=== PATIENT | male | born 1975 | race Caucasian/White ===

== ENCOUNTER 2024-03-21 19:53 | Emergency (ER) | payer OTHER, BC, SELFPAY ==
--- NOTE | ~2024-03-21 | CT_ITS ---
EXAMINATION: CT HEAD WITHOUT CONTRAST CT CERVICAL SPINE WITHOUT CONTRAST CLINICAL INFORMATION: Work injury. Headache. Head stuck between metal. COMPARISON: None available. TECHNIQUE: Contiguous axial imaging was performed from the skull base to vertex without intravenous administration of contrast. Contiguous axial imaging was performed from the upper chest through the skull base without intravenous administration of contrast. Coronal and sagittal reformats were obtained at the acquisition workstation. This CT examination was performed using dose optimization techniques as appropriate, variously including the following: *Automated exposure control. *Adjustment of mA and/or kV according to patient size (this includes techniques or standardized protocols for targeted exams where dose is matched to indication/reason for exam; i.e. extremities or head). *Use of iterative reconstruction technique. DLP: 1099 mGy-cm FINDINGS: Head: There is no evidence of acute intracranial hemorrhage or edematous territorial infarction. Douglas-white matter differentiation is preserved. There is no abnormal attenuation within the brain parenchyma. The ventricles are normal in morphology and size. No evidence for obstructive hydrocephalus. No abnormal mass effect or midline shift. No extra-axial fluid collections. No acute soft tissue or osseous abnormalities. Mild mucosal thickening of the paranasal sinuses. Mild leftward nasal septal deviation. The mastoid air cells and middle ear cavities are clear. Cervical Spine: The atlantooccipital and atlantoaxial articulations remain well aligned. Mild degenerative retrolisthesis of C6 on C7. Otherwise, there is anatomic alignment of the vertebral bodies and posterior elements. No evidence of acute fracture or subluxation. The vertebral body heights are maintained. Advanced degenerative disc disease at C6-7. Mild degenerative disc disease from C3-C6. Facet and uncovertebral joint arthropathy leads to osseous encroachment on the neural foramina from C5-C7. There is no prevertebral soft tissue swelling. The thyroid gland and remaining cervical soft tissues are within normal limits. The lung apices demonstrate no abnormalities. CT/CT cervical spine wo IV con IMPRESSION: 1. No evidence of acute intracranial hemorrhage or edematous territorial infarction. 2. No evidence of acute fracture or traumatic subluxation of the cervical spine. 3. Mild to moderate multilevel degenerative spondyloarthropathy of the cervical spine. Electronically signed by: Jose Angel Gill DO 03/21/2024 10:15 PM [facility] [place] [place]
--- NOTE | ~2024-03-21 | CT_ITS ---
EXAMINATION: CT HEAD WITHOUT CONTRAST CT CERVICAL SPINE WITHOUT CONTRAST CLINICAL INFORMATION: Work injury. Headache. Head stuck between metal. COMPARISON: None available. TECHNIQUE: Contiguous axial imaging was performed from the skull base to vertex without intravenous administration of contrast. Contiguous axial imaging was performed from the upper chest through the skull base without intravenous administration of contrast. Coronal and sagittal reformats were obtained at the acquisition workstation. This CT examination was performed using dose optimization techniques as appropriate, variously including the following: *Automated exposure control. *Adjustment of mA and/or kV according to patient size (this includes techniques or standardized protocols for targeted exams where dose is matched to indication/reason for exam; i.e. extremities or head). *Use of iterative reconstruction technique. DLP: 1099 mGy-cm FINDINGS: Head: There is no evidence of acute intracranial hemorrhage or edematous territorial infarction. Douglas-white matter differentiation is preserved. There is no abnormal attenuation within the brain parenchyma. The ventricles are normal in morphology and size. No evidence for obstructive hydrocephalus. No abnormal mass effect or midline shift. No extra-axial fluid collections. No acute soft tissue or osseous abnormalities. Mild mucosal thickening of the paranasal sinuses. Mild leftward nasal septal deviation. The mastoid air cells and middle ear cavities are clear. Cervical Spine: The atlantooccipital and atlantoaxial articulations remain well aligned. Mild degenerative retrolisthesis of C6 on C7. Otherwise, there is anatomic alignment of the vertebral bodies and posterior elements. No evidence of acute fracture or subluxation. The vertebral body heights are maintained. Advanced degenerative disc disease at C6-7. Mild degenerative disc disease from C3-C6. Facet and uncovertebral joint arthropathy leads to osseous encroachment on the neural foramina from C5-C7. There is no prevertebral soft tissue swelling. The thyroid gland and remaining cervical soft tissues are within normal limits. The lung apices demonstrate no abnormalities. CT/CT head/brain wo IV con IMPRESSION: 1. No evidence of acute intracranial hemorrhage or edematous territorial infarction. 2. No evidence of acute fracture or traumatic subluxation of the cervical spine. 3. Mild to moderate multilevel degenerative spondyloarthropathy of the cervical spine. Electronically signed by: Jose Angel Gill DO 03/21/2024 10:15 PM [facility]
--- NOTE | 2024-03-21 19:57 | ED.GENADULT ---
HPI - General Adult General Chief complaint: Head Injury Stated complaint: head inj - work related Time Seen by Provider: 03/21/24 20:51 Source: patient Mode of arrival: ambulatory Limitations: no limitations History of Present Illness ED Provider: Dr. William Lubin HPI narrative: 49-year-old male with no significant past medical history on no medications who presenting to the ED with complaint of crush injury to his head that occurred at work work yesterday at approximately 15:00 hours States he was on a boom lift and the lift kept going up after he let go of the button. He states that his head got pinned between a Beam and the the boom lift. He has had was turned side weighs in his head was being squeezed. His safety helmet popped off and he was able to pull his head out. He states that his head was squeezed for seconds. Since the incident yesterday he has been having pain in his temporal areas and bilateral shoulder pain and neck pain. He states he has a constant, throbbing headache which is moderate to severe in intensity. States it was an occasional sharp pain. He has had associated nausea and dizziness with no vomiting. He states he is having pain in both shoulders left greater than right and he is having difficulty moving his shoulders. He told me that he went to an urgent care clinic and had a plain x-ray which suggests that he may have had a right-sided skull fracture and he was referred to the emergency department for evaluation. 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 Social History Social History Smoked in Last 30 Days: No Use of substances other than those prescribed or required for medical reasons: No Advance Directives: No Advance Directives Information Provided: No Physical Exam ED Vital Signs: Vital Signs - 24 hr 03/21/24 19:58 03/21/24 21:16 03/21/24 23:05 Temperature 98.8 F 98.1 F 98.1 F Pulse Rate 82 71 57 Respiratory Rate 16 16 18 Blood Pressure 154/87 H 128/74 115/70 Pulse Oximetry 99 99 99 Oxygen Delivery Method Room Air Room Air Room Air BMI result Body Mass Index 22.7 Vital signs revealed an elevated blood pressure of 154/87 Exam: General: Awake, alert in no distress Head: Normocephalic, patient has tenderness palpation of his right and left temporal areas with no obvious hematoma or ecchymosis in these areas. EENT: PERRL, Lids normal, sclera normal, conjunctiva normal, nose normal , ears normal, throat without erythema or exudates Neck: Supple, no adenopathy Lung: breath sounds symmetric, no wheezing, rales or rhonchi Chest: symmetric movement, nontender Heart: regular rate and rhythm, normal S1, S2 no murmurs or rubs Abdomen: soft, non-tender, nondistended, normal bowel sounds Back: no vertebral tenderness, no CVAT Extremities: Patient was tenderness palpation over his left deltoid region, has full passive range of motion of his left shoulder but with active internal rotation external rotation has discomfort. Neuro: Awake, alert, oriented, normal speech, cranial nerves intact, moves all extremities symmetrically Psych: Pleasant, cooperative Course Course Course Narrative: This is a rapid medical exam performed by Leif Carver NP: Additional HPI, ROS, PE not included below will be deferred to primary provider. Patient is a 49-year-old male presenting to the ED with complaint of head injury at work yesterday. States he was on a boom lift and the lift kept going up after he let go of the button. Helmet popped off and his head was pressed between the lift and a metal beam on the temples. Complains of headache. Went to urgent care, referred for CT. Plan: CT head and c-spine Medications Administered Discontinued Medications Generic Name Dose Route Start Last Admin Trade Name Freq PRN Reason Stop Dose Admin Ibuprofen 400 mg 03/21/24 22:39 03/21/24 22:56 Ibuprofen 400 Mg Tablet PO 03/21/24 22:40 400 mg ONCE STA Administration Medical Decision Making Medical Decision Making [facility] Narrative: 49-year-old male with no significant past medical history presents emergency department for evaluation of work-related injury where his head was crushed for seconds between a Beam and a boom lift. Injury occurred yesterday around 15:00 hours and since that time he has had a constant headache with associated nausea and dizziness. He was also had bilateral shoulder pain left greater than right. Vital signs revealed an elevated blood pressure. Physical examination did reveal tenderness palpation of both temporal regions of his scalp as well as pain with palpation of his left shoulder deltoid muscle. Patient does have pain with active range of motion of his left shoulder with increased pain with internal and external rotation. Differential diagnosis: ?Includes but is not limited to skull fracture, intracranial bleed, concussion/TBI, neck fracture, shoulder strain Following evaluation was ordered: CT scan of the head and neck without IV contrast Course: 22:32 CT scan of the patient's head and cervical spine was unremarkable. At this time I believe that the patient's headache is secondary to concussion caused by his head injury and I did discuss this with the patient. The patient has bilateral shoulder pain is most likely caused by musculoskeletal injury from the position that you was in on the boom lift when his head was stuck between the boom lift and the beam. Patient was advised to take Tylenol and ibuprofen for his pain. 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 He will be referred to our occupational health clinic for re-evaluation. Admission/Observation Consideration of admission/observation: Escalation of care including admission/observation considered (Want to fevers the help sitting in the) Radiology Impression Discussion of test interpretation with radiology: I have reviewed the radiologist's reading. Radiologist Impression: CT cervical spine wo IV con IMPRESSION: 1. No evidence of acute intracranial hemorrhage or edematous territorial infarction. 2. No evidence of acute fracture or traumatic subluxation of the cervical spine. 3. Mild to moderate multilevel degenerative spondyloarthropathy of the cervical spine. Electronically signed by: Jose Angel Gill DO 03/21/2024 10:15 PM [facility] Dictated By: Hesham Gill DO Discharge Plan Discharge Clinical Impression: Closed head injury, Concussion without loss of consciousness, Left shoulder pain, Right shoulder pain, Work related injury Patient Disposition: Home, Self-Care Instructions: Concussion (ED), Shoulder Pain (ED) Additional Instructions: The CT scan of your head and neck did not reveal any broken bones or bleeding in the brain which is reassuring. Your headache, nausea and dizziness is consistent with a concussion from your head injury. I believe the pain in your shoulders due to musculoskeletal injury from the position that your in when your head get trapped. Take ibuprofen 200 mg pills, 2 pills every 6 hours as needed for pain or fever. Take Tylenol (acetaminophen) 500 mg pills, 2 pills every 6 hours as needed for pain or fever. You will not be able to return to work until your cleared by an occupational health clinic. You can follow-up with our occupational health clinic or clinic that your employer use for Occupational injuries.. Follow-up with your doctor in 2 days. Please return to the emergency department if your symptoms get worse or if you develop any symptoms that are concerning to you. Referrals: [facility] [Provider Group] - 5 days (Head injury and bilateral shoulder injury at work) Stand Alone Forms: Work/School Release Interventions: ED Discharge Assessment Last Done: 03/21/24 23:05 Discharge Date/Time: 03/21/24 23:09 Print Language: Spanish
[2024-03-21 19:58] VITALS: BP 154/87; PULSE 82; RESP 16; TEMP 37.1; O2SAT 99; BMI 22.7
[2024-03-21 21:16] VITALS: BP 128/74; PULSE 71; RESP 16; TEMP 36.7; O2SAT 99
[2024-03-21] MEDS: Ibuprofen 400 MG TABLET PO (22:56)
[2024-03-21 23:05] VITALS: BP 115/70; PULSE 57; RESP 18; TEMP 36.7; O2SAT 99
== END 2024-03-21 23:09 | disposition home or self-care (01) ==
PROVIDERS: Emergency Provider Emergency Medicine Emergency Medical Services
DX: S09.8XXA Other specified injuries of head, initial encounter (principal); S06.0X0A Concussion without loss of consciousness, initial encounter; W23.1XXA Caught, crushed, jammed, or pinched between stationary objects, initial encounter; M25.512 Pain in left shoulder; M25.511 Pain in right shoulder; Y93.89 Activity, other specified; Y92.9 Unspecified place or not applicable; Y99.0 Civilian activity done for income or pay
CPT/HCPCS: 70450; 72125; 99284

== ENCOUNTER 2025-02-15 16:25 | Emergency (ER) | payer OTHER, BC, SELFPAY ==
[2025-02-15 16:39] VITALS: BP 119/62; PULSE 62; RESP 16; TEMP 36.8; O2SAT 98; BMI 19.6
--- NOTE | 2025-02-15 16:45 | ED_ITS ---
HPI - General Adult General Chief complaint: Headache Stated complaint: headache Time Seen by Provider: 02/15/25 17:39 History of Present Illness ED Provider: Regino Lagos MD HPI narrative: 49-year-old male comes in with headache, frequent recurrent dizziness, some memory or behavior issues self-reported. This is all going on for many months since what he describes as a significant head injury. It he has no vomiting or focal vision symptoms denies focal neurologic complaints. Has not sought care for this until today. The patient does report having [facility]. He feels that the bitemporal regions right greater than left are sore with some palpable tender nodularity there he feels he may have been told that he had a skull fracture at the right temporal region on an x-ray but this is not seen on the CT imaging done here at the time. He has some bilateral shoulder pain since the injury as well feels worse with palpation and rotating his shoulders around. Related Data Allergies Allergy/AdvReac Type Severity Reaction Status Date / Time adhesive Allergy Rash Verified 02/15/25 16:41 lactose Allergy Diarrhea Verified 02/15/25 16:41 milk Allergy Rash Verified 02/15/25 16:41 [facility] Social History Social History Advance Directives: No Advance Directives Information Provided: No Physical Exam ED Exam Exam: EXAM: Gen: Alert, awake, well appearing, well hydrated. Head: Atraumatic no step-off. Mild tenderness broadly across the temporal region without focal nodularity or palpable step-off or trauma. No hematoma. Eyes: Anicteric, Normal conjunctiva. EOMI ENT: Moist mucosa, no pallor. ? Neck: Supple. No midline tenderness Skin: ?No observable rash or bruising on exposed or examined skin Respiratory: Breathing comfortably, No distress.Clear to auscultation bilaterally, symmetric chest expansion, No wheeze, rales, ronchi. Cardiovascular: Regular rate and rhythm. No murmurs or rub. Well perfused periphery, warm extremities. No edema. ? Abdominal: No focal tenderness. Soft, no objective distension. No palpable masses or obvious organomegaly. ?No guarding, no rebound tenderness or other peritoneal findings. : No flank tenderness. Neuro: Alert. Gross movement of all extremities intact. ?5/5 strength upper and lower extremities bilaterally. Sensation intact to light touch. Normal steady gait. No ataxia. No nystagmus. Psych: Calm. Cooperative. MSK: No grossly visible deformity. Mild tenderness perhaps minimal limited range of motion of the right shoulder with rotation however ab duction and adduction normal bilaterally. Normal clavicles Vital signs: See flowsheet Vital Signs: Vital Signs - 24 hr 02/15/25 16:39 02/15/25 17:50 02/15/25 18:22 Temperature 98.2 F 98.3 F 97.8 F Pulse Rate 62 73 66 Respiratory Rate 16 16 15 Blood Pressure 119/62 121/66 117/79 Pulse Oximetry 98 98 96 Oxygen Delivery Method Room Air Room Air Room Air BMI result Body Mass Index 19.6 Course Course Course Narrative: RME: 49-year-old male presents to ED requesting MRI for headaches. Patient has history of right skull fracture had occurred last year had intermittent headaches ever since. Patient was seen couple days ago in the hospital as per patient had a CAT scan. Patient requesting MRI head and neck. Patient denies any stroke symptoms. NIH score is 0. Patient to be evaluated in the ED for Reevaluation(s) Reevaluation #1: 7:15 PM 02/15/2025 (Dr. Regino Lagos): Patient declined shoulder x- rays. I had a lengthy discussion with him I had added on inflammatory markers despite very low suggestion of giant cell arteritis. He did not want to wait for the results I would call him to discuss next steps if this were elevated Medical Decision Making Medical Decision Making MDM Narrative: Medical Decision Making: Chronic headaches for nearly 1 year after head injury. At that time CT head and C-spine which is available to view here was negative. The patient reports he had a skull fracture seen by x-rays in an outside clinic before that imaging was done. Patient has a bitemporal pain worse in the right he feels a lump there in the right side he also reporting behavior changes memory loss confusion on occasion chronic regular dizziness without vomiting. No subsequent head injuries. He feels he has been no unable to work for himself in his having a lot of trouble with this he is not address this to any other provider that he sees including a homeopathic and questionably a PCP over the past year. He has lots of self-reported medication allergies and is averse to trying oral or even topical [id number] pharmaceutical therapies for this. No vomiting no unsteady gait no falls. He also has a and some shoulder and lower neck pain since the time. Denies any focality. The patient does have some tenderness over bitemporal region. No jaw claudication is reported in the history nor any vision symptoms at all. Did consider but very low likelihood that this is a giant cell arteritis/temporal arteritis. I was able to visualize the reasonable stretch of his right temporal artery Later resulted on the I reviewed the inflammatory markers which are not elevated making giant cell arteritis very unlikely particularly given the chronicity of the symptoms Preliminary Favored Differential Diagnosis: Headache, migraine, postconcussive syndrome among additional considered etiologies Testing Interpreted Independently: ?See below for details Radiology or Lab testing Results Reviewed: ?See below for details Consults: ?See below for details Independent Historians/External Chart Reviews: ?See below for details Social Determinants of Health Impacting MDM/Planning: ?See below for details Lab Data 02/15/25 17:15 02/15/25 17:15 Labs: Lab Results 02/15/25 Range/Units 17:15 WBC 6.2 (4.8-10.8) X10*3/uL RBC 4.33 L (4.60-5.80) X10*6/uL Hgb 12.7 L (14.0-18.0) g/dl Hct 37.9 L (42.0-52.0) % MCV 87.5 (80.0-98.0) fL MCH 29.3 (27.0-33.0) pg MCHC 33.5 (31.0-36.0) g/dl RDW 13.6 (11.0-16.0) % Plt Count 268 (160-400) X10*3/uL MPV 9.8 (9.4-12.4) fL Immature Gran % (Auto) 0.2 (0.0-0.4) % Neut % (Auto) 67.2 (45-73) % Lymph % (Auto) 16.8 L (20-40) % Johnson % (Auto) 8.7 (2-11) % Eos % (Auto) 5.2 H (0-4) % Baso % (Auto) 1.9 (0-2) % Lymph # (Auto) 1.0 L (1.2-4.9) X10*3/uL Johnson # (Auto) 0.5 (0.1-1.2) X10*3/uL Eos # (Auto) 0.3 (0.0-0.4) X10*3/uL Baso # (Auto) 0.1 (0.0-0.2) X10*3/uL Abs Immat Gran (auto) 0.01 (0.00-0.03) X10*3/uL Absolute Neuts (auto) 4.2 (2.0-8.3) x10*3/uL Absolute Nucleated RBC 0.000 (0.0-0.012) X10*3/uL Nucleated RBC % (auto) 0.0 (0.0-0.2) /100WBC ESR 2 (0-15) MM/HR Sodium 140 (135-145) mmol/L Potassium 4.4 (3.3-5.1) mmol/L Chloride 107 (96-108) mmol/L Carbon Dioxide 27 (22-29) mmol/L Anion Gap 10 L (12-20) BUN 13 (9-16) mg/dL Creatinine 1.15 (0.5-1.4) mg/dL Estim Creat Clear Calc 66.3 Estimated GFR > 60 Random Glucose 82 (60-115) mg/dL Calcium 8.6 (8.4-10.2) mg/dL Total Bilirubin 0.7 (0.0-1.0) mg/dL AST 31 (5-37) U/L ALT 32 (0-40) U/L Alkaline Phosphatase 41 (39-117) U/L C-Reactive Protein < 0.04 (< or = 0.50) mg/dL Total Protein 7.2 (6.5-8.0) g/dL Albumin 4.2 (3.5-5.0) g/dL Discharge Plan Discharge Clinical Impression: Postconcussion syndrome, Headache Patient Disposition: Home, Self-Care Instructions: Acute Headache (ED), Post Concussion Syndrome (ED) Additional Instructions: _ DISCHARGE DIAGNOSES: Headache likely postconcussion syndrome alternative diagnosis is have not been exhaustively excluded CT brain and cervical spine from 2023 injury evaluation negative for any acute bony or intracranial or neck injuries or pathology HISTORY OF PRESENTATION: ?Headache and tender palpable bitemporal regions of the head EMERGENCY DEPARTMENT COURSE,TESTS, TREATMENTS: While in the ED today you had an ultrasound of your temporal artery which grossly was reassuring you had basic lab work which reassuring DISCHARGE MEDICATIONS: ?[We have made no changes to your regular medication regimen] you declined any topical or oral anti-inflammatory or other medications FOLLOW-UP: ?Call your primary or general physician soon as possible to discuss your symptoms, your ED visit and to discuss follow up plans Call the concussion Clinic and your primary doctor INSTRUCTIONS ?& RETURN PRECAUTIONS: If any symptoms change first call your primary physician, if it is after-hours your primary doctors office should have a provider client solutions manager you can speak with. If the symptoms are severe or very concerning to you then call 911 or return to the ED. Regino Lagos MD Emergency Physician [facility] Referrals: Physician,Lorin Jackson [Primary Care Provider, Medical] Referral Note: You were being referred for chronic concussive like symptoms to concussion clinic several available clinics call for an appointment: [facility], [address] [address] __ [facility] [phone] Interventions: ED Discharge Assessment Last Done: 02/15/25 19:24 Discharge Date/Time: 02/15/25 19:25 Print Language: Serbian
[2025-02-15 17:19] LABS: MANUAL DIFF FLAG NO
[2025-02-15 17:24] LABS: Hematocrit 37.9 % (42.0-52.0); Hemoglobin 12.7 g/dl (14.0-18.0); Imm Gran Abs Auto 0.01 X10*3/uL (0.00-0.03); Imm Gran Pct Auto 0.2 % (0.0-0.4); Lymphocytes Absolute Auto 1.0 X10*3/uL (1.2-4.9); Mean Corpuscular HGB Conc 33.5 g/dl (31.0-36.0); Mean Corpuscular Hemoglobin 29.3 pg (27.0-33.0); Mean Corpuscular Volume 87.5 fL (80.0-98.0); NRBC Abs Auto 0.000 X10*3/uL (0.0-0.012); NRBC Pct Auto 0.0 /100WBC (0.0-0.2); Platelet Count 268 X10*3/uL (160-400); Red Blood Count 4.33 X10*6/uL (4.60-5.80); White Blood Count 6.2 X10*3/uL (4.8-10.8)
[2025-02-15 17:50] VITALS: BP 121/66; PULSE 73; RESP 16; TEMP 36.8; O2SAT 98
[2025-02-15 17:50] LABS: Alanine Aminotransferase 32 U/L (0-40); Albumin Level 4.2 g/dL (3.5-5.0); Anion Gap 10 (12-20); Aspartate Amino Transferase 31 U/L (5-37); Blood Urea Nitrogen 13 mg/dL (9-16); Calcium 8.6 mg/dL (8.4-10.2); Carbon Dioxide 27 mmol/L (22-29); Chloride 107 mmol/L (96-108); Creatinine Clr Calc Pharmacy 66.3; Estimated Glomerular Filt Rate > 60; Potassium 4.4 mmol/L (3.3-5.1); Sodium 140 mmol/L (135-145); Total Protein 7.2 g/dL (6.5-8.0)
[2025-02-15 17:57] LABS: Alkaline Phosphatase 41 U/L (39-117)
[2025-02-15 18:22] VITALS: BP 117/79; PULSE 66; RESP 15; TEMP 36.6; O2SAT 96
--- OUTSIDE RECORDS SUMMARY | 2025-02-15 18:38 | XMS_ITS | Clinical Summary ---
Author Organization [facility] Address [address] [facility] [address] [place] [address] Phone Care Team Providers Care Ager Tender Name Role Phone Anita Sampson Althea TILLMAN Primary Care Provid er Allergies Active Allergy Reactions Criticality Noted Date Comments Lactose 05/25/2024 Adhesive 05/25/2024 Medications No known medications Active Problems Problem Noted Date Diagnosed Date Blunt trauma of neck 01/04/2025 Traumatic incomplete tear of right rotator cuff 01/04/2025 Cervical radiculopathy 01/04/2025 Dizziness after extension of neck 01/04/2025 History of allergic urticaria 01/04/2025 Assessment & Plan (01/04/2025 10:38 AM EDT): Resolved with diet changes, adheres to a carnivore diet. He has been largely symptom free, although recently feeling itchy and he suspects a dairy sensitivity. Excessive weight loss 01/04/2025 Assessment & Plan (01/04/2025 10:42 AM EDT): He initially lost weight when he changed his diet to low carb/carnivore, down 170>>160lbs. He has lost another 20lbs in the last month which he attributes to increased stress and other recent diet changes/cutting out dairy. - Will check blood sugar and thyroid r/o metabolic dysfunction. Bilateral shoulder pain 01/04/2025 Vitamin D deficiency 01/04/2025 Assessment & Plan (01/04/2025 10:56 AM EDT): Hx of low vitamin d, no current supplement. - Check level. History of traumatic brain injury 01/04/2025 Assessment & Plan (01/04/2025 10:58 AM EDT): Hx of concussion without LOC concurrent with blunt injury to neck. Encounters Date Type Department Care Team Description 01/15/2025 10:00 AM EDT Office Visit [facility] [address] [place] [address] [place] [address] Jackson Velazquez DO Blunt trauma of neck, sequela (Primary Dx); Traumatic incomplete tear of right rotator cuff, initial encounter 01/04/2025 10:00 AM EDT Office Visit [facility] [address] [place] [address] [place] [address] Anita Sampson CNP Encounter to establish care (Primary Dx); Screening for lipoid disorders; Colon cancer screening; Screening for human immunodeficiency virus; Need for hepatitis C screening test; Blunt trauma of neck, sequela; Cervical radiculopathy; Dizziness after extension of neck; Traumatic incomplete tear of right rotator cuff, subsequent encounter; History of allergic urticaria; Excessive weight loss; Chronic pain of both shoulders; Vitamin D deficiency; History of traumatic brain injury 12/03/2024 7:33 PM EDT - 12/03/2024 8:15 PM EDT Emergency [facility] [address] [place] [address] Aniceto Keith MD Discharge Disposition: Home or Self Care from Last 3 Months Family History Medical History Relation Comments Breast cancer Neg Hx Colon cancer Neg Hx Diabetes mellitus Neg Hx Heart disease Neg Hx Prostate cancer Neg Hx Social History Tobacco Use Types Packs/Day Years Used Date Smoking Tobacco: Never Smokeless Tobacco: Never Tobacco Cessation:Counseling Given: Not Answered Alcohol Use Standard Drinks/Week Comments Not Currently 0 (1 standard drink = 0.6 oz pur e alcohol) Child or Family Care Answer Date Record ed Do you have problems with on e of the following making it difficult for you to work, study, or receive health care? I choose not to answer 01/04/2025 Education Answer Date Recorded Are you interested in help w ith more adult education (for example, completing high school, GED, job training, learning the Albanian language, technical skills, or developing parenting skills)? I choose not to answer 01/04/2025 Are you concerned about learning? Not on file 01/04/2025 No 01/04/2025 Yes 01/04/2025 Food Answer Date Recorded Within the past 6 months we worried whether our food would run out before we got money to buy more. I choose not to answer 01/04/2025 Within the past 6 months the food we bought just didn't last and we didn't have enough money to get more. I choose not to answer 01/04/2025 Residential Stability Answer Date Recor ded What is your housing situation today? I choose n ot to answer 01/04/2025 How many times have you move d in the past 12 months? I choose not to answer 01/04/2025 Paying for Meds Answer Date Recorded Do you have trouble paying for medicines? I aric se not to answer 01/04/2025 Paying Utility Bills Answer Date Record ed Do you have trouble paying y our heating or electricity bill? I choose not to answer 01/04/2025 Transportation Answer Date Recorded Has the lack of transportati on kept you from medical appointments or from getting medications? I choose not to answer 01/04/2025 Digital Access Answer Date Recorded No 01/04/2025 No 01/04/2025 Do you have reliable internet access at home? I choose not to answer 01/04/2025 Do you have a device (e.g., phone, tablet, computer) with a working camera? I choose not to answer 01/04/2025 Intimate Partner Violence Answer Date R ecorded Are you denied basic needs s uch as food, clothing, or medical care? No 01/04/2025 In the past 12 months have y ou been in a relationship with a person who hurts, threatens, or tries to control you? No 01/04/2025 Are you denied basic needs s uch as food, clothing, or medical care? No 01/04/2025 In the past 12 months have y ou been in a relationship with a person who hurts, threatens, or tries to control you? No 01/04/2025 Sex and Gender Information Value Date Recorded Sex Assigned at Male 12/03/2024 6:09 PM EDT Legal Sex Male 8:27 AM EST Gender Identity Male 12/03/2024 6:09 PM EDT Sexual Orientation Not on file Last Filed Vital Signs Vital Sign Reading Time Taken Comments Blood Pressure 102/60 01/04/2025 9:55 AM EDT Pulse 65 01/04/2025 9:55 AM EDT Temperature 36.6 C (97.8 F) 12/03/2024 6:07 PM EDT Respiratory Rate 16 12/03/2024 6:07 PM EDT Oxygen Saturation 98% 01/04/2025 9:55 AM EDT Inhaled Oxygen Concentration - - Weight 62.7 kg (138 lb 3.2 oz) 01/04/2025 9:55 A M EDT Height 172.7 cm (5' 8 ) 12/03/2024 6:07 PM EDT Body Mass Index 21.01 12/03/2024 6:07 PM EDT Plan of Treatment Upcoming Encounters Date Type Department Care Team (Late st Contact Info) Description 01/08/2026 10:30 AM EDT Office Visit Daily [facility] [address] [place] [address] [place] [address] Anita Sampson, COLD MOLDING PRESS OPERATOR [address] [facility], [address] [place] [address] [email or web address] Health Maintenance Due Date Last Done Comments Adult Td,Tdap Booster 1975 LIPID PANEL 1975 HEPATITIS C SCREENING 1993 HIV ONE-TIME SCREENING (18-6 5 YEARS) 1993 COLOGUARD 2020 COLONOSCOPY 2020 COLORECTAL CANCER SCREENING 2020 FIT TEST 2020 FOBT 2020 SIGMOIDOSCOPY 2020 VIRTUAL COLONOSCOPY 2020 COVID-19 VACCINE ( - 2024-2 6 season) 2024 INFLUENZA VACCINE (#1) 2025 Postp oned from 11/30/2024 (Patient Declines / Guardian Declines) DEPRESSION SCREENING 01/04/2026 01/04/2025 SMOKING STATUS SCREENING (On ce After 26 Yrs) Completed 01/15/2025 HEPATITIS A VACCINES Aged Out No long er eligible based on patient's age to complete this topic HIB VACCINES Aged Out No longer eligi ble based on patient's age to complete this topic MENINGOCOCCAL VACCINES (ACWY) Aged Out No longer eligible based on patient's age to complete this topic MENINGOCOCCAL VACCINES (B) Aged Out N o longer eligible based on patient's age to complete this topic PNEUMOCOCCAL VACCINES (0-49 years) Aged Out No longer eligible based on patient's age to complete this topic Medical Devices Not on file Insurance [place] OUT OF STATE PPO BLUE CROSS OUT OF [facility] PPO [place]UE [place] OUT OF STATE PPO BLUE [place]OSS OUT OF STATE PPO BLUE [place]OSS OUT OF STATE PPO [place] [place] OUT STATE PPO JOE INSURANCE Care Teams Ager Tender Relationship Specialty Start Date End Date Anita Sampson CNP [address] [place] [address], [address] [place] [address] PCP - General Nurse Practitioner 01/04/25 Additional Source Comments The information contained in this document represents components of the legal health record. It is not the complete legal health record.[facility]
--- OUTSIDE RECORDS SUMMARY | 2025-02-15 18:38 | XMS_ITS | Encounter Summary ---
Author Organization [facility] Address [address] [facility] [address] [place] [address] Phone Care Team Providers Care Form Tamping Machine Operator Name Role Phone Angelica Troy MD Primary Care Provider [phone] Anita Sampson CNP Primary Care Provid er Encounter Details Date Type Department Care Team (Late st Contact Info) Description 05/01/2024 Procedure Pass [address] [place] [address] Social History Tobacco Use Types Packs/Day Years Used Date Smoking Tobacco: Never Assessed Education Answer Date Recorded Are you interested in more education? Not on bethanie e 04/24/2024 Are you concerned about learning? Not on file 04/24/2024 No 04/24/2024 No 04/24/2024 Digital Access Answer Date Recorded No 04/24/2024 No 04/24/2024 Reliable internet access at home? Not on file 04/24/2024 Device with a working camera? Not on file Sex and Gender Information Value Date Recorded Sex Assigned at Male 12/03/2024 6:09 PM EDT Legal Sex Male 8:27 AM EST Gender Identity Male 12/03/2024 6:09 PM EDT Sexual Orientation Not on file documented as of this encounter Plan of Treatment Upcoming Encounters Date Type Department Care Team (Late st Contact Info) Description 01/08/2026 10:30 AM EDT Office Visit [facility] [address] [place] [address] [place] [address] Anita Sampson, LAYNE [address] [facility], [address] [place] [address] [email or web address] documented as of this encounter Visit Diagnoses Not on filedocumented in this encounter Care Teams Form Tamping Machine Operator Relationship Specialty Start Date End Date Angelica Troy MD [address] [place] [address] [email or web address] PCP - General Allergy and Immunology 04/24/24 01/03/25 Anita Sampson CNP [address] [facility], [address] [place] [address] PCP - General Nurse Practitioner 01/04/25 documented as of this encounter Additional Source Comments The information contained in this document represents components of the legal health record. It is not the complete legal health record.[facility]
--- OUTSIDE RECORDS SUMMARY | 2025-02-15 18:38 | XMS_ITS | Clinical Summary ---
Author Organization [facility] Address [address] [place] [address] Care Team Providers Care Linux Consultant Name Role Phone Unavailable Primary Care Provider Unavailabl e Allergies Active Allergy Reactions Criticality Noted Date Comments Lactose Diarrhea/GI Upset 05/25/2024 Skin Adhesives Urticarial Rash 05/25/2024 Medications No known medications Encounters Date Type Department Care Team Description 01/15/2025 Telephone [facility] Orthopedic Surgery [address] [address] Faisal Greer MD Imm/Inj ; Return Call 01/10/2025 2:10 PM EDT Consult (Initial) [facility] Surgery [address] [phone] Faisal Greer MD Neck pain (Primary Dx); Radiculitis from Last 3 Months Social History Tobacco Use Types Packs/Day Years Used Date Smoking Tobacco: Never Assessed Sex and Gender Information Value Date Recorded Sex Assigned at Not on file Legal Sex Male 2:51 PM EDT Gender Identity Not on file Sexual Orientation Not on file Plan of Treatment Upcoming Encounters Date Type Department Care Team (Late st Contact Info) Description 03/01/2025 11:00 AM EDT Consult (Initial) [facility] Orthopedic Surgery [address] [phone] Francisco Gomez MD [address] [place] [phone] Neck Pain Health Maintenance Due Date Last Done Comments Hepatitis C Screening 1975 DTaP/Tdap/Td (1 - Tdap) 1993 Hep B (1 of 3 - 19+ 3-dose series) 1994 Colon Cancer Screening 2020 COVID-19 Vaccine ( - 2024-2 6 season) 2024 Influenza (#1) 2024 Zoster (Shingrix) (1 of 2) 2025 HPV Vaccine (No Doses Required) Completed Hep A Aged Out No longer eligi ble based on patient's age to complete this topic Hib Aged Out No longer eligi ble based on patient's age to complete this topic Meningococcal ACWY Aged Out No longer eligible based on patient's age to complete this topic Pneumococcal Aged Out No longer eligi ble based on patient's age to complete this topic Insurance [facility] FEE FOR SERVICE PPO WORKERS COMPENSATION
[2025-02-15 19:24] VITALS: BP 117/79; PULSE 66; RESP 15; TEMP 36.6; O2SAT 96
== END 2025-02-15 19:25 | disposition home or self-care (01) ==
PROVIDERS: Physician Assistant; Emergency Provider Emergency Medicine
DX: R51.9 Headache, unspecified (principal); R42 Dizziness and giddiness; F07.81 Postconcussional syndrome; Z79.899 Other long term (current) drug therapy
CPT/HCPCS: 36415; 80053; 85025; 85652; 86140; 99283

== ENCOUNTER 2025-04-05 14:12 | Outpatient (REF) | payer SELFPAY ==
--- OUTSIDE RECORDS SUMMARY | 2025-04-05 18:24 | XMS_ITS | Encounter Summary ---
Author Organization [facility] Address [address] [facility] [address] [place] [address] Phone Care Team Providers Care Piano Regulator Inspector Name Role Phone Angelica Troy MD Primary Care Provider [phone] Anita Sampson CNP Primary Care Provid er Encounter Details Date Type Department Care Team (Late st Contact Info) Description 05/01/2024 Procedure Pass [address] [place] [address] Social History Tobacco Use Types Packs/Day Years [...] Description 01/08/2026 10:30 AM EDT Office Visit [facility] [address] [place] [address] [place] [address] Anita Sampson, LAYNE [address] [facility], [address] [place] [address] [email or web address] documented as of this encounter Visit Diagnoses Not on filedocumented in this encounter Care Teams Piano Regulator Inspector Relationship Specialty Start Date End Date Angelica Troy MD [address] [place] [address] [email or web address] PCP - General Allergy and Immunology 04/24/24 01/03/25 Anita Sampson CNP [address] [facility], [address] [place] [address] [email or web address] PCP - General Nurse Practitioner 01/04/25 documented as of this encounter Additional Source Comments The information contained in this document represents components of the legal health record. It is not the complete legal health record.[facility]
--- OUTSIDE RECORDS SUMMARY | 2025-04-05 18:24 | XMS_ITS | Clinical Summary ---
Author Organization [facility] Address [address] [facility] [address] [place] [address] Phone Care Team Providers Care Hiv Counselor Name Role Phone Rachael Sampsonolivia Oh CNP Primary Care Provid er Allergies Active Allergy Reactions Criticality Noted Date Comments Adhesive Rash Low 05/25/2024 Lactose Diarrhea Low 05/25/2024 Medications No known medications Active Problems Problem Noted Date Diagnosed Date Blunt trauma of neck 01/04/2025 Assessment & Plan (04/05/2025 8:21 AM EST): The patient's neck pain is likely due to nerve trauma, possibly from a bulging disc or vertebral collapse, rather than a primary nerve issue. He reports feeling nauseous and dizzy, with a bulge in the back of his neck. - The patient discussed his symptoms and history of the accident, and an MRI has been ordered to confirm the diagnosis of the bulging disc or vertebral collapse. Traumatic incomplete tear of right rotator cuff 01/04/2025 Cervical radiculopathy 01/04/2025 Assessment & Plan (04/05/2025 8:21 AM EST): Referral to a accounts specialist has been made, and the patient is scheduled to see the specialist next week in [place]. Dizziness after extension of neck 01/04/2025 Assessment & Plan (04/05/2025 8:22 AM EST): The patient is advised to avoid manipulation of his neck and continue with home exercises. Referral to a specialist for further evaluation and treatment has been discussed. History of allergic urticaria 01/04/2025 Assessment & Plan (04/05/2025 8:19 AM EST): The patient reports a history of dermatitis and allergic reactions to milk and certain foods, which have improved with dietary changes. He experiences occasional flare-ups with certain foods like chocolate and dairy. Previous treatment w/ steroid creams. - Resolved with diet changes, adheres to a carnivore diet. He has been largely symptom free, although recently feeling itchy and he suspects a dairy sensitivity. - The patient is advised to continue avoiding foods that trigger his rash and consider using topical treatments like sexton butter for soothing. Excessive weight loss 01/04/2025 Assessment & Plan (01/04/2025 10:42 AM EDT): He initially lost weight when he changed his diet to low carb/carnivore, down 170>>160lbs. He has lost another 20lbs in the last month which he attributes to increased stress and other recent diet changes/cutting out dairy. - Will check blood sugar and thyroid r/o metabolic dysfunction. 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 He experiences myrv-[id number] sensations and difficulty breathing due to tightness. - The patient discussed his symptoms and history of shoulder pain, and previous MRI results indicating possible tendon issues. Vitamin D deficiency 01/04/2025 Assessment & Plan (04/05/2025 8:20 AM EST): Hx of low vitamin d, no current supplement. - Check level. - The patient is advised to start taking vitamin D supplements again. History of traumatic brain injury 01/04/2025 Assessment & Plan (01/04/2025 10:58 AM EDT): Hx of concussion without LOC concurrent with blunt injury to neck. Encounters Date Type Department Care Team Description 01/15/2025 10:00 AM EDT Office Visit [facility] [address] [place] [address] [place] [address] Jackson Velazquez, Blunt trauma of neck, sequela (Primary Dx); Traumatic incomplete tear of right rotator cuff, initial encounter 01/04/2025 10:00 AM EDT Office Visit Daily [facility] [address] [place] [address] [place] [address] Anita Sampson CNP Encounter to establish care (Primary Dx); Screening for lipoid disorders; Colon cancer screening; Screening for human immunodeficiency virus; Need for hepatitis C screening test; Blunt trauma of neck, sequela; Cervical radiculopathy; Dizziness after extension of neck; History of allergic urticaria; Excessive weight loss; Chronic pain of both shoulders; Vitamin D deficiency; History of traumatic brain injury from Last 3 Months Family History Medical [...] high school, GED, job training, learning the Occitan language, technical skills, or developing parenting skills)? [...] have trouble paying for medicines? I aric shea not to answer 01/04/2025 Paying Utility Bills [...] 01/08/2026 10:30 AM EDT Office Visit Daily [facility] [place] [facility] [address] [place] [address] Anita Sampson, BUTCHER'S ASSISTANT [address] [facility], [address] [place] [address] [email or web address] Health Maintenance Due Date Last Done Comments Adult Td,Tdap Booster 1975 LIPID PANEL 1975 HEPATITIS C SCREENING 1993 HIV ONE-TIME SCREENING (18-6 5 YEARS) 1993 COLOGUARD 2020 COLONOSCOPY 2020 COLORECTAL CANCER SCREENING 2020 FIT TEST 2020 FOBT 2020 SIGMOIDOSCOPY 2020 VIRTUAL COLONOSCOPY 2020 COVID-19 VACCINE ( - 2024-2 6 season) 2024 PNEUMOCOCCAL VACCINES (50+ y ears) (1 of 1 - PCV) 2025 ZOSTER VACCINES (1 of 2) 2025 INFLUENZA VACCINE (#1) 2025 Postp oned from 11/30/2024 (Patient Declines / Guardian Declines) DEPRESSION SCREENING 01/04/2026 01/04/2025 RSV VACCINE (1 - 1-dose 75+ series) 2050 SMOKING STATUS SCREENING (On ce After 26 [...] Medical Devices Not on file Insurance BLUE CROSS OUT OF [facility] PPO [facility] OUT OF [facility] PPO BLUE [place] [id number] BLUE [place] OUT OF STATE PPO [place] [facility] [address] [place] OUT OF STATE PPO BL[employer] [place] OUT OF STATE PPO JOE INSURANCE Care Teams Hiv Counselor Relationship Specialty Start Date End Date Antia Sampson CNP [address] [place] [address], [address] [place] [address] PCP - General Nurse Practitioner 01/04/25 Additional Source Comments The information contained in this document represents components of the legal health record. It is not the complete legal health record.[facility]
--- OUTSIDE RECORDS SUMMARY | 2025-04-05 18:24 | XMS_ITS | Encounter Summary ---
Author Organization [facility] Address [address] [place] [address] Care Team Providers Care Tourist Cabin Keeper Name Role Phone Unknown Pcp, Non Rmg Primary Care Provider Unava ilable Encounter Details Date Type Department Care Team (Late Contact Info) Description 02/28/2025 Results Follow-Up [facility] Orthopedic Surgery [address] [facility] [address] [place] [address] Faisal Greer MD [address] [place] [address] MRI CERVICAL SPINE W/O CONTRAST Social History Tobacco Use Types Packs/Day Years Used Date Smoking Tobacco: Never Assessed Sex and Gender Information Value Date Recorded Sex Assigned at Not on file Legal Sex Male 2:51 PM EDT Gender Identity Not on file Sexual Orientation Not on file documented as of this encounter Plan of Treatment Upcoming Encounters Date Type Department Care Team (Late Contact Info) Description 05/31/2025 9:30 AM EST Office Visit [facility] Neurology [address] [facility] [address] [place] [address] Ghassan Bee PA [address] [facility] [address] [place] [address] workers comp---headaches, vertigo dr [email or web address]--doi 03/20/24 documented as of this encounter Visit Diagnoses Not on filedocumented in this encounter Care Teams Tourist Cabin Keeper Relationship Specialty Start Date End Date Unknown Pcp, Non Rmg PCP - General 02/27/25 documented as of this encounter
--- OUTSIDE RECORDS SUMMARY | 2025-04-05 18:24 | XMS_ITS | Clinical Summary ---
Author Organization [facility] Address [address] [place] [address] Care Team Providers Care Generation Technologist Name Role Phone Unknown Pcp, Non Rmg Primary Care Provider Unava ilable Allergies Active Allergy Reactions Criticality Noted Date Comments Lactose Diarrhea/GI Upset 05/25/2024 Skin Adhesives Urticarial Rash 05/25/2024 Medications No known medications Active Problems No known active problems Encounters Date Type Department Care Team Description 03/14/2025 11:30 AM EST Office Visit [facility] Orthopedic Surgery [address] [place] [phone] Faisal Greer MD Neck pain (Primary Dx) 03/01/2025 11:00 AM EDT Consult (Initial) [facility] Orthopedic Surgery [address] [place] [phone] Francisco Sequeira MD Cervical radiculopathy (Primary Dx); Chronic intractable headache, unspecified headache type 03/01/2025 Telephone [facility] Orthopedics [address] [place] [phone] Francisco Sequeira MD Referral Request 02/28/2025 Results Follow-Up [facility] Orthopedic Surgery [address] [phone] Faisal Greer MD MRI CERVICAL SPINE W/O CONTRAST 02/27/2025 5:30 PM EDT Radiology [facility]. Magnetic Resonance Imaging [address] [place] [address] Neck pain 01/15/2025 Telephone [facility] Orthopedic Surgery [address] [phone] Faisal Grere MD Imm/Inj ; Return Call 01/10/2025 2:10 PM EDT Consult (Initial) [facility] Orthopedic Surgery [address] [facility] [address] [place] [address] Faisal Greer MD Neck pain (Primary Dx); [...] Upcoming Encounters Date Type Department Care Team ([facility] st Contact Info) Description 05/31/2025 9:30 AM EST Office Visit [facility] Neurology [address] [facility] [address] [place] [address] Ghassan Bee PA 123 [facility] [address] [place] [address] workers comp---headaches, vertigo dr sequeira--doi 03/20/24 Health Maintenance Due Date Last Done Comments Hepatitis C Screening 1975 DTaP/Tdap/Td (1 - Tdap) 1993 Hep B (1 of 3 - 19+ 3-dose series) 1994 Colon Cancer Screening 2020 COVID-19 Vaccine ( - 2024-2 6 season) 2024 Influenza (#1) 2024 Pneumococcal 50+ years (1 of 1 - PCV) 2025 Zoster (Shingrix) (1 of 2) 2025 RSV (1 - 1-dose 75+ series) 2050 HPV Vaccine (No Doses Required) Completed Hep A Aged Out No longer eligi ble based on patient's age to complete this topic Hib Aged Out No longer eligi ble based on patient's age to complete this topic Meningococcal ACWY Aged Out No longer eligible based on patient's age to complete this topic Procedures * Due to [place] state law, this organization might not be sharing negative HIV tests. Procedure Name Priority Date/Time Associated Diagnosis Comments MRI CERVICAL SPINE W/O CONTRAST Routine 02/27/2025 5:49 PM EDT Neck pain from Last 3 Months Results * Due to [place] A[employer] law, this organization might not be sharing negative HIV tests. * MRI CERVICAL SPINE W/O CONTRAST (02/27/2025 5:49 PM EDT) Anatomical Region Laterality Modality Spine Magnetic Resonan ce Narrative 02/28/2025 12:56 PM EDT Patient History: neck and bilateral shoulder pain CONTRAST: MR cervical spine without gadolinium Comparison: None provided Findings: Cervical alignment is normal. Vertebral heights are maintained. No pathologic marrow replacing lesions. Spinal cord signal intensity is uniform. C2-C3: Shallow central disc protrusion. No significant stenosis. C3-C4: No disc herniation or stenosis. C4-C5: No disc herniation or stenosis. C5-C6: Shallow disc bulge with uncovertebral joint osteophyte and wihc-wc-zuoudwcx bilateral foraminal stenosis. C6-C7: Disc height loss with disc bulging and uncovertebral joint osteophyte formation. Deformity of the ventral thecal sac with moderate left and mild right foraminal stenosis. C7-T1: No disc herniation or stenosis. Paraspinal soft tissues appear normal. IMPRESSION: 1. 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 Procedure Note Warren Chowdary MD - 02/28/2025 Patient History: neck and bilateral shoulder pain CONTRAST: MR cervical spine without gadolinium Comparison: None provided Findings: Cervical alignment is normal. Vertebral heights are maintained. No pathologic marrow replacing lesions. Spinal cord signal intensity is uniform. C2-C3: Shallow central disc protrusion. No significant stenosis. C3-C4: No disc herniation or stenosis. C4-C5: No disc herniation or stenosis. C5-C6: Shallow disc bulge with uncovertebral joint osteophyte jldunju-ty-pxzgqoax bilateral foraminal stenosis. C6-C7: Disc height loss with disc bulging and uncovertebral jointosteophyte formation. Deformity of the ventral thecal sac with moderateleft and mild right foraminal stenosis. C7-T1: No disc herniation or stenosis. Paraspinal soft tissues appear normal. IMPRESSION: 1. 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 Faisal Greer MD IMG MR NO CONTRAST ORDERABLES F inal Result from Last 3 Months Insurance [employer] FEE FOR SERVICE PPO WORKERS COMPENSATION Care Teams Generation Technologist Relationship Specialty Start Date End Date Unknown Pcp, Non Rmg PCP - General 02/27/25
[2025-04-05 18:48] LABS: Alanine Aminotransferase 43 U/L (0-40); Albumin Level 4.5 g/dL (3.5-5.0); Alkaline Phosphatase 41 U/L (39-117); Anion Gap 11 (12-20); Aspartate Amino Transferase 43 U/L (5-37); Blood Urea Nitrogen 9 mg/dL (9-16); Calcium 9.3 mg/dL (8.4-10.2); Carbon Dioxide 30 mmol/L (22-29); Chloride 103 mmol/L (96-108); Estimated Glomerular Filt Rate > 60; Ferritin 425 ng/mL (20-250); Iron 133 mcg/dL (45-160); Percent Iron Saturation 52 % (15-50); Potassium 4.8 mmol/L (3.3-5.1); Sodium 139 mmol/L (135-145); Total Iron Binding Capacity 255 mcg/dL (228-428); Total Protein 7.8 g/dL (6.5-8.0); Unsaturated Iron Binding 122 ug/dL
[2025-04-06 20:13] LABS: Venous Lead <1.0 mcg/dL (<3.5)
== END 2025-04-05 14:13 | disposition home or self-care (01) ==
LOC: HO.HMGCLDS 14:12
PROVIDERS: PCP Internal Medicine; Visit Provider Allergy & Immunology Allergy
DX: T56.891A Toxic effect of other metals, accidental (unintentional), initial encounter (principal); D64.9 Anemia, unspecified; R79.89 Other specified abnormal findings of blood chemistry
CPT/HCPCS: 80053; 82728; 83540; 83655

== ENCOUNTER 2025-04-06 11:17 | Outpatient (REF) | payer SELFPAY ==
--- OUTSIDE RECORDS SUMMARY | 2025-04-06 11:20 | XMS_ITS | Encounter Summary ---
Author Organization [facility] Address [address] [facility] [address] [place] [phone] Phone Care Team Providers Care Audit Reviewer Name Role Phone Angelica Troy MD Primary Care Provider [phone] Anita Sampson CNP Primary Care Provid er Encounter Details Date Type Department Care Team (Late st Contact Info) Description 05/01/2024 Procedure Pass [address] [place] [address] Social History Tobacco Use Types Packs/Day Years [...] Description 01/08/2026 10:30 AM EDT Office Visit [facility] [address] [place] [address] [place] [address] Anita Sampson, LAYNE [address] [facility], [address] [place] [address] [email or web address] documented as of this encounter Visit Diagnoses Not on filedocumented in this encounter Care Teams Audit Reviewer Relationship Specialty Start Date End Date Angelica Troy MD [address] [place] [phone] [email or web address] PCP - General Allergy and Immunology 04/24/24 01/03/25 Anita Sampson CNP [address] [facility], [address] [place] [phone] [email or web address] PCP - General Nurse Practitioner 01/04/25 documented as of this encounter Additional Source Comments The information contained in this document represents components of the legal health record. It is not the complete legal health record.[facility]
--- OUTSIDE RECORDS SUMMARY | 2025-04-06 11:20 | XMS_ITS | Clinical Summary ---
Author Organization [facility] Address [address] [place] [address] Care Team Providers Care Bander And Cellophaner Machine Name Role Phone Unknown Pcp, Non Rmg Primary Care Provider Unava ilable Allergies Active Allergy Reactions Criticality Noted Date Comments Lactose Diarrhea/GI Upset 05/25/2024 Skin Adhesives Urticarial Rash 05/25/2024 Medications No known medications Active Problems No known active problems Encounters Date Type Department Care Team Description 03/14/2025 11:30 AM EST Office Visit [facility] Orthopedic Surgery [address] [place] [phone] Faisal Greer MD Neck pain (Primary Dx) 03/01/2025 11:00 AM EDT Consult (Initial) [facility] Orthopedic Surgery [address] [place] [phone] Francisco Sequeira MD Cervical radiculopathy (Primary Dx); Chronic intractable headache, unspecified headache type 03/01/2025 Telephone [facility] Orthopedics [address] [place] [phone] Francisco Sequeira MD Referral Request 02/28/2025 Results Follow-Up [facility] Orthopedic Surgery [address] [phone] Faisal Greer MD MRI CERVICAL SPINE W/O CONTRAST 02/27/2025 5:30 PM EDT Radiology [facility] Magnetic Resonance Imaging [address] [place] [phone] Neck pain 01/15/2025 Telephone [facility] Orthopedic Surgery [address] [phone] Faisal Greer MD Imm/Inj ; Return Call 01/10/2025 2:10 PM EDT Consult (Initial) [facility] Orthopedic Surgery [address] [facility] [address] [place] [address] Faisal Greer MD Neck pain (Primary Dx); [...] Upcoming Encounters Date Type Department Care Team ([facility] st Contact Info) Description 05/31/2025 9:30 AM EST Office Visit [facility] Neurology [address] [facility] [address] [place] [address] Ghassan Bee PA 123 [facility] [address] [place] [address] workers comp---headaches, vertigo dr sequeira--doi 03/20/24 Health [...] complete this topic Procedures * Due to [place] state law, this organization might not be sharing negative HIV tests. Procedure Name Priority Date/Time Associated Diagnosis Comments MRI CERVICAL SPINE W/O CONTRAST Routine 02/27/2025 5:49 PM EDT Neck pain from Last 3 Months Results * Due to [place] [employer] law, this organization might not be sharing [...] disc bulge with uncovertebral joint osteophyte and ygmu-er-gzgckfae bilateral foraminal stenosis. C6-C7: Disc height loss [...] Shallow disc bulge with uncovertebral joint osteophyte jmvcphh-zd-ldfdyfmg bilateral foraminal stenosis. C6-C7: Disc height loss [...] FOR SERVICE PPO WORKERS COMPENSATION Care Teams Bander And Cellophaner Machine Relationship Specialty Start Date End Date Unknown Pcp, Non Rmg PCP - General 02/27/25
--- OUTSIDE RECORDS SUMMARY | 2025-04-06 11:20 | XMS_ITS | Encounter Summary ---
Author Organization [facility] Address [address] [place] [address] Care Team Providers Care Assistant Facility Manager Name Role Phone Unknown Pcp, Non Rmg Primary Care Provider Unava ilable Encounter Details Date Type Department Care Team (Late Contact Info) Description 02/28/2025 Results Follow-Up [facility] Orthopedic Surgery [address] [facility] [address] [place] [address] Faisal Greer MD [address] [place] [address] MRI CERVICAL SPINE W/O CONTRAST Social History [...] Description 05/31/2025 9:30 AM EST Office Visit [facility] Neurology [address] [facility] [address] [place] [address] Ghassan Bee PA 123 [facility] [address] [place] [address] workers comp---headaches, vertigo dr sequeira--doi 03/20/24 documented as of this encounter Visit Diagnoses Not on filedocumented in this encounter Care Teams Assistant Facility Manager Relationship Specialty Start Date End Date Unknown Pcp, Non Rmg PCP - General 02/27/25 documented as of this encounter
--- OUTSIDE RECORDS SUMMARY | 2025-04-06 11:21 | XMS_ITS | Clinical Summary ---
Author Organization [facility] Address [address] [facility] [address] [place] [phone] Phone Care Team Providers Care Administrative Appeals Tribunal Member Name Role Phone Rachael Sampsnoolivia Oh CNP Primary Care Provid er Allergies [...] (04/05/2025 8:21 AM EST): Referral to a communications specialist has been made, and the patient is scheduled to see the specialist next week in [place]. 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 [...] Description 01/15/2025 10:00 AM EDT Office Visit [facility] Orthopedics & Sports Medicine [address] [place] [address] [place] [address] Jackson Velazquez, DO Blunt trauma of neck, sequela (Primary Dx); Traumatic incomplete tear of right rotator cuff, initial encounter from Last 3 Months Family History Medical [...] high school, GED, job training, learning the [place] language, technical skills, or developing parenting skills)? [...] EDT Office Visit Daily [facility] [address] [place] [address] [place] [address] Anita Sampson, FLAT SORTER PROCESSOR [address] [facility], [address] Floor [place] [address] Health Maintenance Due Date Last Done Comments Adult Td,Tdap Booster 1975 LIPID PANEL 1975 HEPATITIS C SCREENING 1993 HIV ONE-TIME SCREENING (18-6 5 YEARS) 1993 COLOGUARD 2020 COLONOSCOPY 2020 COLORECTAL CANCER SCREENING 2020 FIT TEST 2020 FOBT 2020 SIGMOIDOSCOPY 2020 VIRTUAL COLONOSCOPY 2020 COVID-19 VACCINE (1 - 2024-2 6 season) 2024 PNEUMOCOCCAL VACCINES [...] topic Medical Devices Not on file Insurance [facility] OUT OF STATE PPO BLUE CROSS OUT OF STATE PPO BLUE CROSS OUT OF STATE PPO BLUE CROSS OUT OF STATE PPO BLUE CROSS OUT OF STATE PPO BLUE CROSS OUT OF STATE PPO BLUE CROSS OUT OF STATE PPO [employer] Care Teams Administrative Appeals Tribunal Member Relationship Specialty Start Date End Date Anita Sampson CNP [address] [place] [address], [address] [place] [address] PCP - General Nurse Practitioner 01/04/25 Additional Source Comments The information contained in this document represents components of the legal health record. It is not the complete legal health record.[facility]
[2025-04-06 14:40] LABS: Folate 11.1 ng/mL (> or = 4.0); Vitamin B12 941 pg/mL (200-900)
[2025-04-10 02:33] LABS: Cadmium, Blood <0.5 mcg/L; Mercury, Blood <4 mcg/L (<=10)
== END 2025-04-06 11:18 | disposition home or self-care (01) ==
LOC: HO.HMGCLDS 11:17
PROVIDERS: PCP Internal Medicine; Visit Provider Allergy & Immunology Allergy
DX: T56.891A Toxic effect of other metals, accidental (unintentional), initial encounter (principal); D64.9 Anemia, unspecified; R79.89 Other specified abnormal findings of blood chemistry
CPT/HCPCS: 36415; 82300; 82607; 82746; 83825